=== PATIENT | male | born 1930 | race Caucasian/White ===

== ENCOUNTER → 2017-02-19 | Outpatient (CLI) | payer MEDICARE, BC ==
[~2017-02-19] MED LIST: ASPIRIN325 MG PO; CILOSTAZOL50 M1 PO; IOPAMIDOL 370 MG/ML 200 ML INFUS..BTL INJ ONE; PRAVASTATIN SOD10 MG PO; RANEXA500 MG PO; SODIUM CHLORIDE 0.9% 250ML 500 ML ONE; SODIUM CHLORIDE 0.9% 50ML 50 ML ONE; Z.0.CRESTOR5 MG PO; Z.0.TRICOR48 MG PO
[2017-02-19 12:13] LABS: CREATININE, SERUM 1.52 mg/dL (0.72-1.25)
--- NOTE | 2017-02-19 14:50 | Diagnostic Imaging Report ---
CT abdomen, pelvis and lower extremities February 19, 2017 Clinical history: Leg pain. History of bypass. Technique: Arterial phase protocol CT abdomen and pelvis performed after 100 mL Isovue-370 intravenous contrast. No enteric contrast was administered. Coronal, sagittal and axial images generated from source data. Dose: 672.07 mGy-cm Comparison: None Findings: Vascular: Aortic dimensions at the level of: Diaphragmatic hiatus: 2.7 cm Renal arteries: 2.1 cm Infrarenal: 1.8 cm Bifurcation: 1.4 cm Moderate arteriosclerosis of the abdominal aorta with mild noncalcified atheromatous plaque. No flow limiting stenosis. Celiac: Patent without flow-limiting stenosis. SMA: Less than 50% short segment stenosis secondary to noncalcified atheromatous plaque (image 57, series 404) COLTON: Patent Renal arteries: Single bilaterally. Less than 50% stenosis at the origins bilaterally. Right lower extremity arterial system: Common iliac: Moderate calcified and noncalcified atheromatous plaque (less than 50% stenosis) External iliac: 50-75% stenosis of the proximal segment. Common femoral: at least 50% stenosis. [place] superficial femoral: Occluded. Profunda femoris: Patent. Femoral-popliteal vein bypass: Proximally patent without flow-limiting stenosis. Diminutive flow in the distal segment with poor opacification secondary to bolus timing. Popliteal: Nonopacified. Moderate atherosclerosis. Tibioperoneal trunk, posterior tibial, peroneal, anterior tibial and dorsalis pedis are not opacified. Left lower extremity arterial system: Common iliac: Greater than 60% short segment stenosis at the origin, with extensive calcified and noncalcified atheromatous plaque. External iliac: 50-75% stenosis of the proximal segment. Common femoral: Less than 50% stenosis proximally. 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 Profunda femoris: Radha, with a tortuous proximal segment (image 104, series 3). Femoral-popliteal bypass graft (Two:): Both occluded. Popliteal: Nonopacified. Moderate atherosclerosis. Tibioperoneal trunk, posterior tibial, peroneal, anterior tibial and dorsalis pedis are not opacified. Nonvascular findings: Centrilobular emphysema. No pleural effusions. Normal heart size. Liver: Normal Gallbladder: Normal Pancreas: Normal Spleen: Normal Adrenal glands: Normal Kidneys: Bilateral cortical scar. Otherwise, normal Prostate and seminal vesicles: Normal Bowel: Normal caliber. Peritoneum: Normal Lymph nodes: Normal Skeleton: Intact. L4-L5 and L5-S1 degenerative disc disease. 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 Soft tissues: Normal Impression: 1. Flow-limiting stenosis of the right external iliac artery. The venous femoral-popliteal bypass graft is patent. Diminutive distal flow within the graft and poor opacification of the popliteal and infrapopliteal vessels is likely secondary to bolus timing. 2. Flow-limiting stenosis of the left common iliac, external iliac, and common femoral artery, with occlusion of 2 femoral popliteal bypass grafts. Nonopacification of the popliteal and infrapopliteal vessels. This report was generated with voice-recognition technology. Errors in customer relations advisor can occur. Please interpret accordingly and contact a radiologist if there are any questions regarding the report. Signed by: Dr. Néstor Ambrocio M.D. on 02/19/2017 2:46 PM
== END ==
LOC: CT 10:58
PROVIDERS: ATTEND Internal Medicine Cardiovascular Disease
DX: I25.10 Atherosclerotic heart disease of native coronary artery without angina pectoris (principal); M79.605 Pain in left leg; I74.4 Embolism and thrombosis of arteries of extremities, unspecified; I73.9 Peripheral vascular disease, unspecified
CPT/HCPCS: 36415; 75635; 82565; 84520; J7050; Q9967

== ENCOUNTER → 2017-05-09 | Outpatient (CLI) | payer MEDICARE, BC ==
[~2017-05-09] MED LIST changes: -IOPAMIDOL 370 MG/ML 200 ML INFUS..BTL INJ ONE; -SODIUM CHLORIDE 0.9% 250ML 500 ML ONE; -SODIUM CHLORIDE 0.9% 50ML 50 ML ONE
--- NOTE | 2017-05-13 13:52 | Diagnostic Imaging Report ---
MRI SPINE LUMBAR WO History: Low back pain after lifting , intervertebral disc disorder with radiculopathy, \S\INTERVERTEBRAL DISC DISORDERS Comparison studies:CT Lower Extremity CTA 02/19/2017 Technique: Sagittal and axial T2 , sagittal T1 and IR, axial spin density oblique. Intravenous contrast: None Findings: Number of lumbar vertebral bodies: 5. Alignment: Relative straightening of the normal lordosis within the lumbar spine. This is new compared to 02/19/2017 and is likely due to secondary spasm. No scoliosis. Soft tissues: Atherosclerotic wall thickening within the burgess of the abdominal aorta and iliac arteries. There is stable left renal pelviectasis. The gallbladder is hydropic consistent with age. Paraspinal muscles: There is extensive paraspinal and psoas muscle atrophy, age-appropriate. Lower thoracic cord: Normal in signal and morphology. The tip of the conus is at T12-L1 . Cauda equina: No masses. No arachnoiditis. Vertebrae: Acute L3 compression fracture is noted, new compared to abdominal CT from 3 months prior with a nonsignificant 5 mm's of posterior mass effect. Compared to recent CT there is 50% height loss anteriorly and 30% height loss posteriorly. Degenerative changes: L1-L2: No abnormalities L2-L3: Left foraminal zone focal disc protrusion, with 3 mm of posterior mass effect and mild narrowing of the left foramen. Spinal canal widely patent. L3-L4: Loss of T2 signal decide. Symmetric bulging disc with 3 mm of posterior mass effect. Mild bilateral foraminal narrowing. Spinal canal widely patent. L4-L5: Loss of T2 signal and disc height. Symmetric bulging disc with 2.9 mm of posterior mass effect. Mild bilateral foraminal narrowing. Spinal canal widely patent. L5-S1: Loss of T2 signal and disc height. Grade 1 anterolisthesis of L5 on S1. Moderate bilateral foraminal narrowing. Spinal canal widely patent. IMPRESSION: Acute L3 compression fracture with interval 50 percent height loss compared to recent CT. Notified Dr. Jama Yarbrough on 05/13/2017 at 12:52pm Signed by: Dr. Arya Riggins M.D. on 05/13/2017 1:49 PM
== END ==
LOC: MRI 09:13
PROVIDERS: ATTEND Neurological Surgery
DX: M51.16 Intervertebral disc disorders with radiculopathy, lumbar region (principal)
CPT/HCPCS: 72148

== ENCOUNTER 2019-07-16 15:38 | Emergency (ER) | payer MEDICARE, BC ==
[~2019-07-16] VITALS: Ht 182.9 cm; Wt 66.7 kg
--- OUTSIDE RECORDS SUMMARY | 2019-07-16 15:40 | XMS REPORT ---
Author Author [facility] t Organization [facility] Address [address] [place] [address] Phone Unavailable Care Team Providers Care Program Coordinator Executive Education Name Role Phone Reyes Donovan MD PCP [phone] RICHARD JOYCE Attphys Unavailable SONA JAQUEZ Attphys Unavailable Payers Payer Name Policy Type Policy Number Effective Date Expiration Date S ource Problems Condition Name Condition Details Condition Category Status Onset Date Resolution Date Last Treatment Date Treating Clinician Comments Source PAD (peripheral artery disease) PAD (peripheral artery disease) Dis ease Active 2017-02-26 00:00:00 Last Assessm ent & Plan: Patient with symptomatic peripheral arterial disease. We discussed peripheral arterial disease, its etiology and need for medical management be contributing risk factors . We discussed natural history including claudication progressing to rest pain, ulcerations and possibly limb loss. We discussed treatment options including medical therapy, endovascular therapy with angioplasty or stenting, and surgical bypass. We discussed trying to avoid amputation and the need to go in a stepwise fashion. We discussed potential complications including worsening of disease, healing complications, recurrent nature of this problem and need for additional therapies in the future.OSH study reviewed by me.Due to multiple failed bypasses, no intervention needed at this time. Plan to ambulate using a scooter or a wheelchair. RTC prn. Gordon Yazidi Allergies, Adverse Reactions, Alerts Allergy Name Allergy Type Status Severity Reaction(s) Onset Date Inacti ve Date Treating Clinician Comments Source Penicillins DA Active U 2018-01-03 00:00:00 [facility] ibuprofen DA Active U 2018-01-03 00:00:00 [facility] Penicillins DA Active U 2017-09-16 00:00:00 [facility] ibuprofen DA Active U 2017-09-16 00:00:00 [facility] Penicillin G Propensity to adverse reactions to drug Active 2017-02-26 00:00:00 Evan rueda Social History Social Habit Start Date Stop Date Quantity Comments Source Sex Assigned At Maryellen Diana Smoking Status Start Date Stop Date Source Current every day smoker 2017-02-26 00:00:00 Maryellen Diana Medications Ordered Medication Name Filled Medication Name Start Date Stop Da te Current Medication? Ordering Clinician Indication Dosage Frequency Signature (SIG) Comments Components Source aspirin (ECOTRIN) 81 MG enteric coated tablet 2017-02-26 15:48:0 3 Yes 81mg QD Take 81 mg by mouth daily. Edu Diana apixaban (ELIQUIS) 5 mg tablet 2017-02-26 15:48:03 Yes Q.5D Take by mouth 2 (two) times a day. Evan lima ranolazine (RANEXA) 500 MG 12 hr ER tablet 2017-02-26 15:48:03 Yes 500mg Q.5D Take 500 mg by mouth 2 (two) times a day. Evan Diana Procedures This patient has no known procedures. Plan of Care Planned Activity Planned Date Details Comments Source Future Scheduled Test 2019-09-25 00:00:00 INFLUENZA VACCINE [code = INFLUENZA VACCINE] Gordon Yazidi Future Scheduled Test 1997 00:00:00 65+ PNEUMOCOCCAL V ACCINE (1 of 2 - PCV13) [code = 65+ PNEUMOCOCCAL VACCINE (1 of 2 - PCV13)] [facility] Future Scheduled Test 1982 00:00:00 SHINGLES VACCINES (#1) [code = SHINGLES VACCINES (#1)] Evan Diana Results Test Description Test Time Test Comments Results Result Comments Source EXTREMITY AMP.,NON-TRAUMATIC 2017-10-10 13:08:00 DATE: 10/10/17 [facility] PAGE 1 RUN TIME: 1309 Specimen Inquiry RUN USER: INTERFACE PATIENT: KYUNG PATTON LOC: FERNANDO U #: [id number] AGE/SX: 87/M ROOM: [facility] RE10/03/17[facility] DR: Valerie Calderon MD : 32 BED: A DIS: STATUS: ADM IN TLOC: SPEC #: [id number] RECD: 10/06/17 STATUS: RUBA REQ #: [id number] EVELYN: 10/04/[address] [facility] [address]: Carloz Boudreaux MD ENTERED: 10/06/17 SP TYPE: EXTREMITY OTHR DR: Arsenio Still MD, Heinz J MD Lee, Remington Pek Fong DOORDERED: GROSS COPIES TO: Arsenio Still MD [address] KAREN Stringer [id number] Sona Jaquez MD [address] [place] [address] Doug Durbin DO [address] [place] [address] Carloz Boudreaux MD [address] [facility] [address] [place] [address] MARKERS: INTRADEPARTMENTAL CONSULT PROCEDURES: GROSS (10/10/17-125 9) TISSUES: LEFT LEG - AKA CLINICAL HISTORY COLLECTION DATE: 10/04/2017 LEFT LEG ISCHEMIA COMMENT Intradepartmental consultation: RRB CONTINUED ON NEXT PAGE RUN DATE: 10/10/17 [facility] PAGE 2 RUN TIME: 1309 Specimen Inquiry RUN USER: INTERFACE SPEC #: [id number] PATIENT: KYUNG PATTON #[id number] (Continued) FINAL DIAGNOSIS Left leg, above the knee amputation: SKIN AND UNDERLYING TISSUE WITH CHANGES CONSISTENT WITH ISCHEMIC NECROSIS ARTERY WITH COMPLETE OCCLUSION, ATHEROMATOUS CHANGES AND MICROCALCIFICATIONS, DISTAL TO ANASTAMOSIS SELAM/ A [id number], [address] MACROSCOPIC The specimen is received without fixative in a biohazard bag, labeled with the patient's name and medical record number, and identified as "Left leg above knee". The specimen consists of an [id number] amputation of the left lower extremity. All five toes are present with their nails. The foot measures 27.5 cm in length. The lower leg measures 53 cm from the sole of the foot to the mid- portion of the knee. The specimen measures 15 cm from the mid-portion of the knee to the proximal soft tissue margin of resection. A segment of femur extends 20 cm beyond the soft tissue margin of resection. The skin of the upper leg is mendez to mendez-pink. The skin of the lower leg is also mendez with markedly decreased hair distribution and severe atrophy of the musculature. An area of superficial ulceration is noted 6 cm proximal to the lateral malleolus. This area measures 2 cm in overall diameter and is surrounded by erythematous discoloration. Discoloration is also noted at the foot, mainly beneath the level of the left malleolus. [place] discoloration is noted across the dorsal surface of the foot with dark blue-leon discoloration extending along the lateral edge from the heel towards the mid-portion. The skin of the first and second toes is red-to-dark/leon and ischemic appearing. Vascular graft material is seen extending from the proximal soft tissue margin. The graft is traced distal to the upper leg. A segment of zuni vessel is attached to the graft. Calcified plaque material is present on the arteries with subtotal occlusion. Section code: 1A- ischemic appearing tissue from the heel; 1B- sections through ulcerated area, distal lateral leg; 1C- section from proximal margin of resection; 1D- section of vessel at anastomosis point, proximal, decal; 1E- sections of vessel distal to anastomosis, decal GROSS PERFORMED AT [facility] [address] [place] [address], [place], [place] [address] [phone])[phone] CONTINUED ON NEXT PAGE RUN DATE: 10/10/17 [facility] PAGE 3 RUN TIME: 1309 Specimen Inquiry RUN USER: INTERFACE SPEC #: [id number] PATIENT: KYUNG PATTON #[id number] (Continued) MICROSCOPIC MICROSCOPIC PERFORMED AT [facility] All of the stains, including any controls performed, stain appropriately. [facility] [address] [facility] [place] [address] [phone])[phone] PERFORMING SITE Diagnosis performed at: [facility], MD [address] [place], [place] [address] Signed SIGNATURE ON Suri No 10/10/17 1308 END OF REPORT MRI SPINE LUMBAR WO [place] [address] Patient Name: KYUNG PATTON MR #: [id number] : 1930 Age/Sex: 86/M Req #: [id number] Adm Physician: Ordered by: RICHARD JOYCE MD Report #: [id number] Location: MRI Room/Bed: Procedure: [id number] MRI/MRI SPINE LUMBAR WO Exam Date: Exam Time: REPORT STATUS: Signed MRI SPINE LUMBAR WO History: Low back pain after lifting , intervertebral disc disorder with radiculopathy, Comparison studies:CT Lower Extremity CTA 02/19/2017 Technique: Sagittal and axial T2 , sagittal T1 and IR, axial spin density oblique. Intravenous contrast: None Findings: Number of lumbar vertebral bodies: 5. Alignment: Relative straightening of the normal lordosis within the lumbar spine. This is new compared to 02/19/2017 and is likely due to secondary spasm. No scoliosis. Soft tissues: Atherosclerotic wall thickening within the burgess of the abdominal aorta and iliac arteries. There is stable left renal pelviectasis. The gallbladder is hydropic consistent with age. Paraspinal muscles: There is extensive paraspinal and psoas muscle atrophy, age-appropriate. Lower thoracic cord: Normal in signal and morphology. The tip of the conus is at T12-L1 . Cauda equina: No masses. No arachnoiditis. Vertebrae: Acute L3 compression fracture is noted, new compared to abdominal CT from 3 months prior with a nonsignificant 5 mm's of posterior mass effect. Compared to recent CT there is 50% height loss anteriorly and 30% height loss posteriorly. Degenerative changes: L1-L2: No abnormalities L2-L3: Left foraminal zone focal disc protrusion, with 3 mm of posterior mass effect and mild narrowing of the left foramen. Spinal canal widely patent. L3-L4: Loss of T2 signal decide. Symmetric bulging disc with 3 mm of posterior mass effect. Mild bilateral foraminal narrowing. Spinal canal widely patent. L4-L5: Loss of T2 signal and disc height. Symmetric bulging disc with 2.9 mm of posterior mass effect. Mild bilateral foraminal narrowing. Spinal canal widely patent. L5-S1: Loss of T2 signal and disc height. Grade 1 anterolisthesis of L5 on S1. Moderate bilateral foraminal narrowing. Spinal canal widely patent. IMPRESSION: Acute L3 compression fracture with interval 50 percent height loss compared to recent CT. Notified Dr. Richard Joyce on 05/13/2017 at 12:52pm Signed by: Dr. Arya Padilla M.D. on 05/13/2017 1:49 PM Dictated By: ARYA PADILLA MD 134 Transcribed By: KELLY on 05/13/17 1349 COPY TO: RICHARD JOYCE MD CTA ABD/PEL/RUN OFF [place] [address] Patient Name: KYUNG PATTON MR #: [id number] : 1930 Age/Sex: 86/M Req #: [id number] Adm Physician: Ordered by: SONA JAQUEZ MD Report #: [id number] Location: CT Room/Bed: Procedure: [id number] CT/CTA ABD/PEL/RUN OFF Exam Date: 02/19/17 Exam Time: 1254 REPORT STATUS: Signed CT abdomen, pelvis and lower extremities February 19, 2017 Clinical history: Leg pain. History of bypass. Technique: Arterial phase protocol CT abdomen and pelvis performed after 100 mL Isovue-370 intravenous contrast. No enteric contrast was administered. Coronal, sagittal and axial images generated from source data. Dose: 672.07 mGy-cm Comparison: None Findings: Vascular: Aortic dimensions at the level of: Diaphragmatic hiatus: 2.7 cm Renal arteries: 2.1 cm Infrarenal: 1.8 cm Bifurcation: 1.4 cm Moderate arteriosclerosis of the abdominal aorta with mild noncalcified atheromatous plaque. No flow limiting stenosis. Celiac: Patent without flow-limiting stenosis. SMA: Less than 50% short segment stenosis secondary to noncalcified atheromatous plaque (image 57, series 404) COLTON: Patent Renal arteries: Single bilaterally. Less than 50% stenosis at the origins bilaterally. Right lower extremity arterial system: Common iliac: Moderate calcified and noncalcified atheromatous plaque (less than 50% stenosis) External iliac: 50-75% stenosis of the proximal segment. Common femoral: at least 50% stenosis. [place] superficial femoral: Occluded. Profunda femoris: Patent. Femoral-popliteal vein bypass: Proximally patent without flow-limiting stenosis. Diminutive flow in the distal segment with poor opacification secondary to bolus timing. Popliteal: Nonopacified. Moderate atherosclerosis. Tibioperoneal trunk, posterior tibial, peroneal, anterior tibial and dorsalis pedis are not opacified. Left lower extremity arterial system: Common iliac: Greater than 60% short segment stenosis at the origin, with extensive calcified and noncalcified atheromatous plaque. External iliac: 50-75% stenosis of the proximal segment. Common femoral: Less than 50% stenosis proximally. 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 Profunda femoris: Radha, with a tortuous proximal segment (image 104, series 3). Femoral-popliteal bypass graft (Two:): Both occluded. Popliteal: Nonopacified. Moderate atherosclerosis. Tibioperoneal trunk, posterior tibial, peroneal, anterior tibial and dorsalis pedis are not opacified. Nonvascular findings: Centrilobular emphysema. No pleural effusions. Normal heart size. Liver: Normal Gallbladder: Normal Pancreas: Normal Spleen: Normal Adrenal glands: Normal Kidneys: Bilateral cortical scar. Otherwise, normal Prostate and seminal vesicles: Normal Bowel: Normal caliber. Peritoneum: Normal Lymph nodes: Normal Skeleton: Intact. L4-L5 and L5-S1 degenerative disc disease. 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 Soft tissues: Normal Impression: 1. Flow-limiting stenosis of the right external iliac artery. The venous femoral-popliteal bypass graft is patent. Diminutive distal flow within the graft and poor opacification of the popliteal and infrapopliteal vessels is likely secondary to bolus timing. 2. Flow-limiting stenosis of the left common iliac, external iliac, and common femoral artery, with occlusion of 2 femoral popliteal bypass grafts. Nonopacification of the popliteal and infrapopliteal vessels. This report was generated with voice-recognition technology. Errors in oil well logger can occur. Please interpret accordingly and contact a radiologist if there are any questions regarding the report. Signed by: Dr. Grace Ambrocio M.D. on 02/19/2017 2:46 PM Dictated By: GRACE AMBROCIO MD 1446 Transcribed By: KELLY on 02/19/17 1446 COPY TO: SONA JAQUEZ MD
--- OUTSIDE RECORDS SUMMARY | 2019-07-16 15:40 | XMS REPORT | Clinical Summary ---
Author Author [facility] Organization [facility] Address Unknown Phone Unavailable Care Team Providers Care Burning Supervisor Name Role Phone Fernando Donovan MD PCP [phone] Allergies Comments Active Allergy Reactions Severity Noted Date Penicillin G 02/26/2017 Medications End Date Status Medication Sig Dispensed Refills Start Date Active aspirin (ECOTRIN) 81 MG Take 81 mg by 0 enteric coated tablet mouth daily. Active apixaban (ELIQUIS) 5 mg Take by mouth 0 tablet 2 (two) times a day. Active ranolazine (RANEXA) 500 Take 500 mg 0 MG 12 hr ER tablet by mouth 2 (two) times a day. Active Problems Problem Noted Date PAD (peripheral artery disease) 02/26/2017 Last Assessment & Plan: Patient with symptomatic peripheral art erial disease. We discussed peripheral arterial disease, its etiolo gy and need for medical management be contributing risk factors . We discu ssed natural history including claudication progressing to rest pain, ulcerations and possibly limb loss. We discussed treatment options includin g medical therapy, endovascular therapy with angioplasty or stenting, a nd surgical bypass. We discussed trying to avoid amputation and the need to go in a stepwise fashion. We discussed potential complications inclu ding worsening of disease, healing complications, recurrent nature of this problem and need for additional therapies in the future. OSH study reviewed by me. Due to multiple failed bypasses, no int ervention needed at this time. Plan to ambulate using a scooter or a wheelc hair. RTC prn. Family History Relation Name Status Comments Mother Social History Date Tobacco Use Types Packs/Day Years Used Current Every Day Smoker Smokeless Tobacco: Current User Sex Assigned at Date Recorded Not on file Industry Job Start Date Occupation Not on file Not on file Not on file Travel End Travel History Travel Start No recent travel history available. Last Filed Vital Signs Not on file Plan of Treatment Health Maintenance Due Date Last Done Comments SHINGLES VACCINES (#1) 1982 65+ PNEUMOCOCCAL VACCINE 1997 (1 of 2 - PCV13) INFLUENZA VACCINE 09/25/2019 Results Not on fileafter 07/15/2018 Insurance Type Payer Benefit Subscriber ID Effective Phone Address Plan / Dates Group Medicare MEDICARE MEDICARE xxxxxxxxxx 1997-P [place], PART A AND resent [place] B PPO BCBS BCBS xxxxxxxxxxxxxxx 2016-P CHOICE resent PPO/TISH JENKINS PPO Advance Directives For more information, please contact: [phone] Patient Youth Associate Explanation Type Date Recorded Advance Directives, Living Will and Medical Power of Autos Disassembler
[2019-07-16] MEDS ORDERED: ACETAMINOPHEN/CODEINE 300MG - 30MG TAB PO ONE (16:30)
[2019-07-16] MEDS ORDERED: HYDROCODONE/APAP 5MG-325MG TAB PO ONE ×2 (16:45→17:45)
--- NOTE | 2019-07-16 17:08 | Diagnostic Imaging Report ---
History:Fall Comparison studies: None Technique: Axial images were obtained from the skull base to the vertex. Coronal and sagittal images reconstructed from the axial data. Dose modulation, iterative reconstruction, and/or weight based adjustment of the mA/kV was utilized to reduce the radiation dose to as low as reasonably achievable. Intravenous contrast: None Findings: Scalp/skull: No abnormalities. Extra-axial spaces: No masses. No fluid collections. Brain sulci: Moderately prominent. Ventricles: Moderate compensatory dilatation. No hydrocephalus. Parenchyma: Bilateral, confluent hypodensities in the supratentorial white matter are small vessel ischemic changes. No masses, hemorrhage, acute or chronic cortical vascular insults. Sellar/suprasellar region: No abnormalities. Craniocervical junction: Patent foramen magnum. No Chiari one malformation. Incidental findings: Diffuse atherosclerotic calcifications in the carotid siphons and focal in the left vertebral artery. Impression: No acute abnormalities. Chronic findings: 1. Moderate generalized volume loss. 2. Diffuse supratentorial white matter small vessel ischemic changes. Signed by: Dr. Eric Vasquez M.D. on 07/16/2019 5:05 PM
--- NOTE | 2019-07-16 17:31 | Diagnostic Imaging Report ---
Exam: Right femur, 4 views History: Leg pain, status post fall 2 days ago Comparison: None. Findings: There is decreased bone mineralization, which limits evaluation of the bony structures. No acute, displaced fracture or dislocation in the femur, however, there is an incompletely visualized oblique fracture likely involving the right superior ramus. Mild degenerative changes in the right hip and sacroiliac joint. Extensive vascular calcifications. A vascular metallic stent is partially visualized in the right upper pelvis. No soft tissue swelling. Multiple metallic clips project over the right hip and in the soft tissues of the medial aspect of the femur Impression: 1. Decreased bone mineralization limits evaluation of the bony structures. No acute, displaced fracture or dislocation in the femur, however, a partially visualized oblique fracture likely involving the right superior ramus is noted. Recommend CT pelvis for further evaluation. Signed by: Dr. Quinton Barragan M.D. on 07/16/2019 5:28 PM
--- NOTE | 2019-07-16 17:35 | Diagnostic Imaging Report ---
EXAMINATION: Right Hip Films with AP pelvis CLINICAL HISTORY:Status post fall 2 days ago COMPARISON: None. DISCUSSION: Generalized osteopenia, which limits evaluation of the bony structures. Acute, mildly displaced oblique fracture involving the right superior pubic ramus . No other acute fractures are visualized. Mild degenerative changes in the hip and sacroiliac joints, as well as in the lower lumbosacral spine. Vertebroplasty changes in L3.. Extensive vascular calcifications. Bilateral common iliac stents are visualized in the right upper pelvis. Multiple metallic clips project over bilateral hips IMPRESSION: 1. Evaluation of the bony structures limited by generalized osteopenia 2. Acute, mildly displaced oblique fracture involving the right superior pubic ramus. Recommend pelvic trauma protocol for further evaluation. Signed by: Dr. Quinton Barragan M.D. on 07/16/2019 5:32 PM
--- NOTE | 2019-07-16 17:35 | Diagnostic Imaging Report ---
Exam: CT chest Clinical history: Status post fall Technique: Helical images of the chest were obtained without contrast Findings: There is a 3.5 x 2.9 cm particularly the mass in the right upper lobe with posterior pleural involvement suspicious for neoplasm. A 0.9 x 1.9 cm intraluminal filling defect is also noted in the distal trachea, this may represent mucous, however, a mass cannot be excluded. There is no evidence of lymphadenopathy. Severe emphysematous changes are noted bilaterally. The cardiac size is within normal limits. The great vessels are normal in caliber and configuration. Hypodense lesions are noted in the right and left kidneys measuring 0.5 and 1.6 cm. A may represent cysts, however, due to lack of IV contrast, further characterization was not possible. With a calcifications are also noted in bilateral renal pelvis which may represent nephrolithiasis. Impression: 1. Right upper lobe mass measuring up to 3.5 cm in diameter worrisome for a neoplasm. 2. Bilateral severe emphysematous changes of the lungs. 3. Intraluminal filling defect in the distal trachea which may represent mucous versus mass. 4. Severe wedge deformity is seen in the T5 vertebral body. Moderate wedge deformity is also noted in the T9 vertebral body. These are most consistent with compression fractures, age indeterminant. 5. Hypodense lesions in both kidneys likely represent cysts. However, due to lack of IV contrast, further characterization was not possible. If indicated, ultrasound can be performed for further assessment. Signed by: Dr. Michael Avalos MD on 07/16/2019 5:31 PM
[2019-07-16] MEDS ORDERED: HYDROCODONE/APAP 5MG-325MG TAB ONE (17:44)
--- NOTE | 2019-07-16 17:55 | Diagnostic Imaging Report ---
Exam: CT abdomen and pelvis Clinical history: Status post fall Technique: Helical images of the abdomen and pelvis were obtained without contrast DOSE REDUCTION: The exams was performed according to the departmental dose-optimization program which includes automated exposure control, adjustment of the mA and/or kV according to patient size and/or use of iterative reconstruction technique. Findings: Bilateral emphysematous changes of the lungs are noted. There is no evidence of pleural effusion. The cardiac size is within normal limits. The liver, spleen, pancreas, gallbladder, adrenal glands, are unremarkable. Hypodense lesions are noted in both kidneys which may represent cysts. However, due to lack of IV contrast, further characterization was not possible. If indicated, ultrasound is recommended for further assessment. The small and large bowels are normal in caliber without evidence of obstruction. The rectum is mildly prominent containing air and feces which may represent constipation. The bladder, prostate, and seminal vesicles are unremarkable. There is no evidence of lymphadenopathy or free fluid. The aorta and IVC are normal in caliber. Significant atherosclerotic calcifications are noted throughout the abdominal and pelvic vasculatures. Minimally displaced fractures involving the right superior and inferior pubic ramus is noted. The patient still status post L3 vertebral augmentation. Degenerative disease is also noted in the lower lumbar spine. Impression: 1. Acute minimally displaced fractures involving the right superior and inferior pubic ramus. 2. Hypodense lesions in both kidneys, ultrasound is recommended for further characterization. Signed by: Dr. Michael Avalos MD on 07/16/2019 5:52 PM
--- NOTE | 2019-07-16 18:16 | Emergency Department Note ---
History of Present Illnes History of Present Illness Chief Complaint: Extremity Trauma/Pain History of Present Illness This is a 88 year old male fell at home. now ith right hip pain and pain all over. . Historian: Patient Arrival Mode: Car Onset (how long ago): day(s) (2) Location: head abdomen chest back Quality: sharp Radiation: back, extremity, abdomen; non-radiation, neck, periumbilical, flank, proximal, distal, other Severity: moderate Onset quality: sudden Duration (how long): day(s) (2) Timing of current episode: constant Progression: worsening Chronicity: new Context: recent illness Relieving factors: none Exacerbating factors: none Associated symptoms: denies other symptoms, other Treatments prior to arrival: none Past Medical/Family History Physician Review I have reviewed the patient's past medical and family history. Any updates have been documented here. Past Medical History Recent Fever: No Clinical Suspicion of Infectio: No New/Unexplained Change in Ment: No Other Medical History: IRREGULAR HR, 3 cardiac stents, COPD, LEFT AKA, PVD Other Surgery: VEIN/ARTERIAL REPLACEMENT BILAT LEGS, HERNIA, LEFT AKA, 3 STENTS. Social History Smoking Cessation: Current every day smoker Counseling Performed: No Alcohol Use: None Any Illegal Drug Use: No TB Exposure/Symptoms: No Physically hurt or threatened: No Other Last Tetanus: unk Any Pre-Existing Lines (PICC,: No Is patient up to date on immun: Yes Last Flu: 2019 Last Pneumovax: unk Review of Systems Review of Systems Constitutional: no symptoms EENTM: no symptoms Cardiovascular: no symptoms Respiratory: no symptoms, as per HPI Gastrointestinal: no symptoms, as per HPI Genitourinary: no symptoms Musculoskeletal: no symptoms, as per HPI Neurological: no symptoms Psychological: no symptoms Endocrine: no symptoms Hematological/Lymphatic: no symptoms Review of other systems All other systems reviewed and negative. Physical Exam Related Data Allergies: Coded Allergies: Penicillins (Verified Allergy, RASH, 08/24/11) aspirin (Verified Allergy, RASH, GI BLEED, 08/24/11) Triage Vital Signs Vital Signs Date Time Temp Pulse Resp B/P (MAP) Pulse Ox O2 Delivery O2 Flow Rate FiO2 07/16/19 15:50 99.5 81 26 139/76 92 Vital signs reviewed: Yes Physical Exam CONSTITUTIONAL Constitutional: well-developed, well-nourished HENT HENT: normocephalic, atraumatic, oropharynx clear/moist, nose normal HENT L/R: left ext ear normal, right ext ear normal EYES Eyes: PERRL, conjunctivae normal NECK Neck: ROM normal PULMONARY Pulmonary: effort normal, breath sounds normal CARDIOVASCULAR Cardiovascular: regular rhythm, heart sounds normal, capillary refill normal, normal rate GASTROINTESTINAL Abdominal: soft, nontender, bowel sounds normal GENITOURINARY Genitourinary: exam deferred SKIN Skin: warm, dry MUSCULOSKELETAL R HIP PAIN AND ABD TENDERNESS AND NECK TENDERNESS LEFT AKA Musculoskeletal: ROM normal NEUROLOGICAL Neurological: alert, oriented x 3, no gross motor or sensory deficits PSYCHOLOGICAL Psychological: mood/affect normal, judgement normal Results Imaging Imaging results reviewed: Yes Critical Care Time Subsequent provider I assumed direction of critical care for this patient from another provider of my specialty. Assessment & Plan Assessment & Plan Final Impression: (1) Vertebral compression fracture (2) Lesion of lung (3) Blunt abdominal trauma (4) Blunt chest trauma (5) Neck sprain (6) Head injury (7) Pubic ramus fracture (8) Fracture of pelvic bone without disruption of posterior arch of pelvic ring Assessment & Plan PATIENT WANTS TO GO HOME TYLENOL#3 Depart Disposition: HOME, SELF-CARE Last Vital Signs Date Time Temp Pulse Resp B/P (MAP) Pulse Ox O2 Delivery O2 Flow Rate FiO2 07/16/19 15:50 99.5 81 26 139/76 92 Home Meds Reported Medications Aspirin (ASPIRIN) 325 Mg Tablet, 325 MG PO, TAB 06/20/14 Pravastatin Sodium (PRAVASTATIN SODIUM) 10 Mg Tablet, 10 MG PO DAILY 06/20/14 Ranolazine (RANEXA) 500 Mg Tabsr, 500 MG PO BID, #60 TAB 06/20/14 Fenofibrate Nanocrystallized (Tricor) 48 Mg Tablet, 1 TAB PO DAILY 08/24/11 Medications in the ED Acetaminophen/ Codeine Phosphate 1 ea NOW ONCE PO ; Start 07/16/19 at 16:30; Stop 07/16/19 at 16:32; Status DC Acetaminophen/ Hydrocodone Bitart 1 ea ONCE ONCE PO Last administered on 07/16/19at 16:32; Admin Dose 1 EA; Start 07/16/19 at 16:45; Stop 07/16/19 at 16:46; Status DC Acetaminophen/ Hydrocodone Bitart 1 ea ONCE ONCE PO Last administered on 07/16/19at 17:39; Admin Dose 1 EA; Start 07/16/19 at 17:45; Stop 07/16/19 at 17:46; Status DC Acetaminophen/ Hydrocodone Bitart 1 ea STK-MED ONCE .ROUTE ; Start 07/16/19 at 17:44; Stop 07/16/19 at 17:39; Status DC LIV HANNAH MD July 16, 2019 18:16
[2019-07-16] MEDS ORDERED: TYLENOL WITH C1 EACH PO (18:17)
--- NOTE | 2019-07-16 18:26 | Diagnostic Imaging Report ---
History: Fall from ladder Comparison studies: None Technique: Axial images were obtained through the cervical region.. Coronal and sagittal images reconstructed from the axial data. Dose modulation, iterative reconstruction, and/or weight based adjustment of the mA/kV was utilized to reduce the radiation dose to as low as reasonably achievable. Intravenous contrast: None Findings: Soft tissues: Scattered atherosclerotic calcifications in the cervical region. Coarse calcifications at the carotid siphons. Atlantoaxial articulation: Minimally degenerated. Alignment: Increased lordosis is probably positional. Cervicomedullary junction: No abnormalities. The foramen magnum is patent. Vertebrae: Moderately demineralized No fractures, infection or neoplasm. Degenerative changes: * Mildly degenerated disks at from C3 through C7. * Mild bilateral facet arthrosis throughout the cervical region. * Mild spinal canal stenosis at C3-4 due to a disc osteophyte complex. * Mild foraminal stenosis on the left at C3-4, bilaterally at C5-6 and at C6-7 due to facet and uncoarthrosis. IMPRESSION: 1. No acute abnormalities. 2. Cannot adequately evaluate for ligament, spinal cord and or vascular abnormalities. 3. Degenerative changes as described Signed by: Dr. Eric Vasquez M.D. on 07/16/2019 6:22 PM
--- NOTE | 2019-07-16 18:42 | NUR ---
pt diaper changed and pt dressed, per family requerst
[2019-07-16 18:50] VITALS: BP 157/72
== END 2019-07-16 19:12 | disposition home or self-care (01) ==
LOC: FSED 15:38
DX: M25.551 Pain in right hip (principal); S32.89XA Fracture of other parts of pelvis, initial encounter for closed fracture; S22.000A Wedge compression fracture of unspecified thoracic vertebra, initial encounter for closed fracture; S00.83XA Contusion of other part of head, initial encounter; S20.219A Contusion of unspecified front wall of thorax, initial encounter; R10.33 Periumbilical pain; W19.XXXA Unspecified fall, initial encounter; J44.9 Chronic obstructive pulmonary disease, unspecified; I73.9 Peripheral vascular disease, unspecified; Z89.612 Acquired absence of left leg above knee; Z95.5 Presence of coronary angioplasty implant and graft; F17.210 Nicotine dependence, cigarettes, uncomplicated
CPT/HCPCS: 70450; 71250; 72125; 74176; 99284